=== PATIENT | female | born 1995 | race Caucasian/White ===

== ENCOUNTER 2023-10-14 20:16 | Emergency (ER) | payer OTHER, SELFPAY ==
[2023-10-14 20:22] VITALS: BP 122/85; PULSE 97; O2SAT 98
--- NOTE | 2023-10-14 20:31 | ED_ITS ---
HPI - General Adult General Chief complaint: Abdominal Pain Stated complaint: VOMITING, DIARRHEA, DIZZINESS Time Seen by Provider: 10/15/23 02:30 Source: patient Mode of arrival: EMS Limitations: no limitations History of Present Illness HPI narrative: Patient comes to the emergency room complaining of 2 days of vomiting and diarrhea. Patient complaining of abdominal cramping. Patient denies fever chills. Patient states that her young son, [id number], has nausea vomiting diarrhea as well but it is less severe for him. Patient denies any URI or UTI symptoms. Patient came by ambulance, patient was giving a L of IV fluids and Zofran. Related Data Previous Rx's Medication Instructions Recorded loperamide 2 mg capsule 2 mg PO Q6H PRN loose stool #10 10/15/23 caps ondansetron 4 mg disintegrating 4 mg PO Q6H PRN nausea and 10/15/23 tablet vomiting #14 tabs Allergies Allergy/AdvReac Type Severity Reaction Status Date / Time Unable to Assess Allergy Unverified 10/14/23 20:31 Review of Systems 2 Review of Systems: Constitutional : No Weight loss, No Fever, No Chills, No Night Sweats, No Fatigue, No Malaise ENT/Mouth : No Hearing loss, No Ear Pain, No Nasal Congestion, No Sinus Pain, No Hoarseness, No sore throat, No Rhinorrhea, No Swallowing Difficulty Eyes: No Eye Pain, No Swelling, No Redness, No Foreign Body, No Discharge, No Vision Changes Cardiovascular : No Chest Pain, No SOB, No Dyspnea on Exertion, No Orthopnea, No Edema, No Palpitations Respiratory : No Cough, No Sputum, No Wheezing, No Smoke Exposure, No Dyspnea Gastrointestinal : Complaining of nausea vomiting and diarrhea No Constipation, No abdominal Pain, No Hematochezia, No Melena Genitourinary : no irregular bleeding, No Dysuria, No Urinary Frequency, No Hematuria, No Urinary Incontinence, No Urgency, No Flank Pain, No Urinary Flow Changes, No Hesitancy Musculoskeletal : No joint pain, No Myalgias, No Joint Swelling Skin : No Skin Lesions, No rash Neuro : No Weakness, No Numbness, No Paresthesias, No Loss of Consciousness, No Dizziness, No Headache Psych : No Anxiety/Panic, No Depression, No SI/HI/AH/VH, No Social Issues, Heme/Lymph: No Bruising, No Bleeding,No Lymphadenopathy Endocrine : No Polyuria, No Polydipsia, No Temperature Intolerance Physical Exam ED Vital Signs: Vital Signs - 24 hr 10/14/23 21:05 10/15/23 01:19 Temperature 98.8 F 98 F Pulse Rate 83 91 Respiratory Rate 16 16 Blood Pressure 135/84 135/80 Pulse Oximetry 98 97 Oxygen Delivery Method Room Air Room Air BMI result Body Mass Index 28.3 Const Other: Appearance: Alert. Oriented X3. No acute distress. Eyes: Pupils equal, round and reactive to light. ENT: Pharynx normal. moist mucous membranes Neck: Normal inspection. Neck supple. No lymph nodes noted. No crepitus CVS: Normal heart rate and rhythm. Pulses normal. Normal S1 and S2 Respiratory: No respiratory distress. Breath sounds normal. No Wheezing. No rales Abdomen: Soft and nontender. No rigidity. No distention. Skin: Skin warm and dry. Normal skin color. Normal skin turgor. Extremities: No lower extremity edema. No Lacerations. No Rash Neuro: Oriented X 3. No motor deficit. No sensory deficit. Moving all extremities. No slurred speech. CN 2 through 12 grossly intact Psych: calm, cooperative, normal affect Course Course Course Narrative: This is an RME: Additional HPI, ROS, PE not included below will be deferred to primary provider. 28-year-old female presents with abdominal cramping, nausea, diarrhea ongoing for the past few days worsening, according to patient there is a ?stomach bug? going around, it has been going on for about a week her son at home is sick with similar symptoms. Was given 4 mg of IV Zofran and some fluids by EMS. Plan labs, viral test Medical Decision Making Medical Decision Making [facility] Narrative: my interpretation of labs: Hematology within normal limits. Chemistry: Hypokalemia, negative lipase, hCG negative, normal magnesium, AST ALT in the low 50s nonspecific, COVID RSV and flu negative - patient was given already IV fluids and Zofran per EMS. Patient was given p.o. potassium in the emergency room, loperamide p.o. Differential Diagnosis Differential Diagnoses: The differential diagnosis associated with the presentation includes ( gastritis, gastroenteritis, viral illness) Admission/Observation Consideration of admission/observation: Escalation of care including admission/observation considered ( given patient's initial presentation, admission was considered) Lab Data [facility] Lab Attestation statement: I reviewed the patient's lab results. 10/14/23 20:43 10/14/23 20:43 Labs: Lab Results 10/14/23 10/14/23 Range/Units 20:41 20:43 WBC 7.5 (4.8-10.8) X10*3/uL RBC 4.57 (4.20-5.50) X10*6/uL Hgb 14.1 (12.0-16.0) g/dl Hct 40.8 (37.0-47.0) % MCV 89.3 (80.0-98.0) fL MCH 30.9 (27.0-33.0) pg MCHC 34.6 (31.0-35.0) g/dl RDW 12.1 (11.0-16.0) % Plt Count 254 (160-400) X10*3/uL MPV 9.2 L (9.4-12.3) fL Immature Gran % (Auto) 0.1 (0.0-0.4) % Neut % (Auto) 66.9 (45-73) % Lymph % (Auto) 24.9 (20-40) % [place] % (Auto) 6.3 (2-11) % Eos % (Auto) 1.5 (0-4) % Baso % (Auto) 0.3 (0-2) % Lymph # (Auto) 1.9 (1.2-4.9) X10*3/uL [place] # (Auto) 0.5 (0.1-1.2) X10*3/uL Eos # (Auto) 0.1 (0.0-0.4) X10*3/uL Baso # (Auto) 0.0 (0.0-0.2) X10*3/uL Abs Immat Gran (auto) 0.01 (0.00-0.03) X10*3/uL Absolute Neuts (auto) 5.0 (2.0-8.3) x10*3/uL Absolute Nucleated RBC 0.000 (0.0-0.012) X10*3/uL Nucleated RBC % (auto) 0.0 (0.0-0.2) /100WBC Sodium 138 (135-145) mmol/L Potassium 3.0 L (3.3-5.1) mmol/L Chloride 107 (96-108) mmol/L Carbon Dioxide 22 (22-29) mmol/L Anion Gap 12 (12-20) BUN 10 (9-16) mg/dL Creatinine 0.75 (0.5-1.4) mg/dL Estim Creat Clear Calc 100.7 Estimated GFR > 60 Random Glucose 98 (60-115) mg/dL Calcium 8.4 (8.4-10.2) mg/dL Magnesium 1.9 (1.6-2.6) mg/dL Total Bilirubin 0.3 (0.0-1.0) mg/dL AST 53 H (5-31) U/L ALT 51 H (0-31) U/L Alkaline Phosphatase 73 (39-117) U/L Total Protein 7.0 (6.5-8.0) g/dL Albumin 4.0 (3.5-5.0) g/dL Lipase 23 (8-78) U/L Beta HCG, Quant < 2 mIU/mL Influenza Type A (PCR) NEGATIVE (Negative) Influenza Type B (PCR) NEGATIVE (Negative) RSV RNA Qual (PCR) NEGATIVE (Negative) SARS-CoV-2 RNA (RT-PCR) NEGATIVE (Negative) Critical Care Time Critical Care Time Critical Care Time: Yes Total Critical Care Time: 45 Attestation: I have personally provided critical care time. Time includes review of lab data, radiology results, discussion with consultants, and monitoring for potential decompensation. Intervention performed as documented. Discharge Plan Discharge Clinical Impression: Gastroenteritis, Acute hypokalemia Patient Disposition: Home, Self-Care Instructions: Gastroenteritis (ED) Additional Instructions: please drink plenty of fluids with electrolytes such as Gatorade, Powerade or Pedialyte. Please follow-up with your primary care physician tomorrow. If you have any worsening or new symptoms, please return to the emergency room or call 911 Prescriptions: New ondansetron 4 mg tablet,disintegrating 4 mg PO Q6H PRN (Reason: nausea and vomiting) Qty: 14 0RF loperamide 2 mg capsule 2 mg PO Q6H PRN (Reason: loose stool) Qty: 10 0RF Stand Alone Forms: Work/School Release
[2023-10-14 21:05] VITALS: BP 135/84; PULSE 83; RESP 16; TEMP 37.1; O2SAT 98; BMI 28.3
[2023-10-15 01:19] VITALS: BP 135/80; PULSE 91; RESP 16; TEMP 36.6; O2SAT 97
== END 2023-10-15 03:11 | disposition home or self-care (01) ==
LOC: HO.ED 10-15 02:55
PROVIDERS: Emergency Provider Emergency Medicine
DX: K52.9 Noninfective gastroenteritis and colitis, unspecified (principal); E87.6 Hypokalemia; Z20.822 Contact with and (suspected) exposure to COVID-19; Z20.828 Contact with and (suspected) exposure to other viral communicable diseases
CPT/HCPCS: 0241U; 80053; 83690; 83735; 84702; 85025; 99283; 99284